=== PATIENT | male | born 1975 | race Caucasian/White ===

== ENCOUNTER 2019-08-19 11:02 | Emergency (ER) | payer OTHER ==
[~2019-08-19] VITALS: Ht 180.3 cm; Wt 72.6 kg
[2019-08-19] MEDS ORDERED: MAYZENT2 MG (11:25)
== END 2019-08-19 13:36 | disposition home or self-care (01) ==
LOC: ER 11:02
DX: B34.9 Viral infection, unspecified (principal)

== ENCOUNTER 2020-06-07 08:33 | Outpatient (CLI) | payer OTHER ==
[~2020-06-07 08:33] MED LIST: MAYZENT2 MG
== END 2020-06-07 09:52 | disposition home or self-care (01) ==
LOC: SONOGRAMA 08:33
PROVIDERS: ATTEND Pathology Anatomic Pathology & Clinical Pathology
DX: E04.2 Nontoxic multinodular goiter (principal)

== ENCOUNTER 2020-06-24 09:04 | Outpatient (CLI) | payer OTHER | END 2020-06-24 09:24 | disposition home or self-care (01) | LOC: LAB 09:04 | PROVIDERS: ATTEND Specialist | DX: C73 Malignant neoplasm of thyroid gland (principal); Z01.810 Encounter for preprocedural cardiovascular examination; Z01.811 Encounter for preprocedural respiratory examination ==

== ENCOUNTER 2020-07-01 07:15 | Inpatient (IN) | payer OTHER ==
[~2020-07-01] VITALS: Ht 177.8 cm; Wt 70.3 kg
[2020-07-01] MEDS ORDERED: ABILIFY10 MG PO (09:05)
[2020-07-01] MEDS ORDERED: DEPAKOTE SPRIN125 MG PO (09:05)
[2020-07-01] MEDS ORDERED: SYNTHROID50 MCG PO (09:06)
[2020-07-01] MEDS ORDERED: RESTORIL30 M1 PO (09:06)
[2020-07-01] MEDS ORDERED: ATIVAN1 M1 PO (09:06)
[2020-07-08] MEDS ORDERED: LEVOTHYROXINE112 MCG (08:28)
[2020-07-08] MEDS ORDERED: VALPROIC A250 MG/5 M (08:29)
== END 2020-07-09 19:32 | disposition home or self-care (01) | DRG 627 ==
LOC: O/R 07-08 04:50 → SURH 07-08 04:50
PROVIDERS: ADMIT Specialist; ATTEND Specialist
PROC: 0GTH0ZZ Resection of Right Thyroid Gland Lobe, Open Approach (ICD-10-PCS; principal; 2020-07-08 07:00)
DX: C73 Malignant neoplasm of thyroid gland (principal); G35 Multiple sclerosis

== ENCOUNTER 2020-08-16 12:58 | Outpatient (CLI) | payer OTHER ==
[~2020-08-16 12:58] MED LIST changes: +ABILIFY10 MG PO; +ATIVAN1 M1 PO; +DEPAKOTE SPRIN125 MG PO; +LEVOTHYROXINE112 MCG; +RESTORIL30 M1 PO; +SYNTHROID50 MCG PO; +VALPROIC A250 MG/5 M
== END 2020-08-16 13:14 | disposition home or self-care (01) ==
LOC: NUCLEAR 12:58
PROVIDERS: ATTEND Internal Medicine Sports Medicine
DX: C73 Malignant neoplasm of thyroid gland (principal); E89.0 Postprocedural hypothyroidism
CPT/HCPCS: 79005; A9517

== ENCOUNTER 2020-08-20 12:58 | Outpatient (CLI) | payer OTHER | END 2020-08-20 13:09 | disposition home or self-care (01) | LOC: NUCLEAR 12:58 | PROVIDERS: ATTEND Internal Medicine Sports Medicine | DX: C73 Malignant neoplasm of thyroid gland (principal); E89.0 Postprocedural hypothyroidism ==

== ENCOUNTER 2020-11-12 13:04 | Emergency (ER) | payer OTHER ==
[~2020-11-12] VITALS: Ht 177.8 cm; Wt 68.0 kg
[2020-11-12] MEDS ORDERED: SKELAXIN800 MG PO (15:38)
[2020-11-12] MEDS ORDERED: SKELAGESIC TOP (15:38)
== END 2020-11-12 18:09 | disposition home or self-care (01) ==
LOC: ER 13:04
DX: M94.0 Chondrocostal junction syndrome [Tietze] (principal)

== ENCOUNTER 2021-08-12 12:16 | Outpatient (CLI) | payer OTHER ==
[~2021-08-12 12:16] MED LIST changes: +SKELAGESIC TOP; +SKELAXIN800 MG PO
== END 2021-08-12 12:17 | disposition home or self-care (01) ==
LOC: NUCLEAR 12:16
PROVIDERS: ATTEND Internal Medicine Sports Medicine
DX: C73 Malignant neoplasm of thyroid gland (principal); E89.0 Postprocedural hypothyroidism
CPT/HCPCS: 78018; 78020; A9528

== ENCOUNTER → 2024-12-30 | Emergency (ER) | payer OTHER ==
[~2024-12-30] MED LIST changes: +FAMOTIDINE/PF 20 MG/2 ML VIAL ONE
== END | disposition home or self-care (01) ==
LOC: ER 17:00
DX: R19.7 Diarrhea, unspecified (principal); R10.13 Epigastric pain; Z88.0 Allergy status to penicillin; F31.89 Other bipolar disorder

== ENCOUNTER 2025-07-27 10:54 | Emergency (ER) | payer OTHER ==
[~2025-07-27] VITALS: Ht 177.8 cm; Wt 74.8 kg
[~2025-07-27 10:54] MED LIST changes: -FAMOTIDINE/PF 20 MG/2 ML VIAL ONE
[2025-07-27] MEDS ORDERED: TETANUS & DIPHTHERIA TOX,ADULT 0.5 ML VIAL IM ONE (11:45)
[2025-07-27] MEDS ORDERED: DIPHTH,PERTUSS(ACELL),TET VAC 0.5 ML SYRINGE IM ONE (12:12)
== END 2025-07-27 12:34 | disposition home or self-care (01) ==
LOC: ER 10:55
DX: S71.122A Laceration with foreign body, left thigh, initial encounter (principal); W45.8XXA Other foreign body or object entering through skin, initial encounter; Y93.89 Activity, other specified; Y92.89 Other specified places as the place of occurrence of the external cause; E03.8 Other specified hypothyroidism; Z88.6 Allergy status to analgesic agent; G35.D Multiple sclerosis, unspecified
CPT/HCPCS: 90471; 90714; J1670